=== PATIENT | male | born 1985 | race Caucasian/White ===

== ENCOUNTER 2019-04-05 16:54 | Emergency (ER) | payer OTHER ==
[2019-04-05] MEDS ORDERED: CLEOCIN 600 MG/50 mL 600 MG/50 ML BAG IV ONE (17:35)
--- NOTE | 2019-04-05 17:39 | Emergency Department Report ---
- General Chief Complaint: Abdominal Pain Stated Complaint: HERNIA PAIN Time Seen by Provider: 04/05/19 17:18 Source: patient Mode of arrival: Ambulatory Limitations: No Limitations - History of Present Illness Initial Comments: 33-year-old male complains of pain and swelling to left upper thigh/groin region for the past 3 days. Symptoms have gradually worsened. Positive redness, tenderness to palpation, and pain rated 9/10 in intensity. Patient had subjective fevers. Contrary to triage patient does not have a history of hernia but he assumed that the swelling pain was due to a hernia. His complains of increased urinary frequency and denies previous history of diabetes. Patient denies nausea or vomiting. Last bowel movement 3 days ago. Patient has received a tetanus within the last 10 years - Related Data Previous Rx's Medication Instructions Recorded Last Taken Type Ibuprofen [Motrin] 600 mg PO Q8H PRN #30 tablet 04/05/19 Unknown Rx Sulfamethoxazole/Trimethoprim 1 each PO BID #20 tablet 04/05/19 Unknown Rx [Bactrim DS TAB] traMADol [Ultram 50 MG tab] 50 mg PO Q6HR PRN #20 tablet 04/05/19 Unknown Rx Allergies Allergy/AdvReac Type Severity Reaction Status Date / Time No Known Allergies Allergy Verified 04/05/19 18:18 ED Review of Systems ROS: Stated complaint: HERNIA PAIN Other details as noted in HPI Comment: All other systems reviewed and negative ED Past Medical Hx - Past Medical History Previous Medical History?: No - Social History Smoking Status: Current Every Day Smoker Substance Use Type: None - Medications Home Medications: Home Medications Medication Instructions Recorded Confirmed Last Taken Type Ibuprofen [Motrin] 600 mg PO Q8H PRN #30 tablet 04/05/19 Unknown Rx Sulfamethoxazole/Trimethoprim 1 each PO BID #20 tablet 04/05/19 Unknown Rx [Bactrim DS TAB] traMADol [Ultram 50 MG tab] 50 mg PO Q6HR PRN #20 tablet 04/05/19 Unknown Rx ED Physical Exam - General Limitations: No Limitations - Other Other exam information: General: No limitations, patient is alert in no acute distress Head exam: Atraumatic, normocephalic Eyes exam: Normal appearance ENT: Moist mucous membrane Neck exam: Normal inspection, full range of motion, no meningismus nontender Respiratory exam: Clear to auscultation bilateral, no wheezes, rales, crackles Cardiovascular: Normal rate and rhythm Abdomen: Soft, nondistended, and nontender, with normal bowel sounds, no rebound, or guarding Extremity: Full range of motion normal inspection no deformity Back: Normal Inspection, full range of motion, no tenderness Neurologic: Alert, oriented x3, cranial nerves intact, no motor or sensory def icit Psychiatric: normal affect, normal mood Skin:left upper thigh 6x 6 area of induration with central fluctuance and 11 x 11 cm area of redness and warmth ED Course Vital Signs 04/05/19 04/05/19 04/05/19 17:01 18:30 18:35 Temperature 98.8 F Pulse Rate 95 H 79 Respiratory 18 18 18 Rate Blood Pressure 123/73 Blood Pressure 121/68 [Right] O2 Sat by Pulse 98 100 100 Oximetry 04/05/19 19:40 Temperature 98.8 F Pulse Rate 82 Respiratory 18 Rate Blood Pressure Blood Pressure 118/74 [Right] O2 Sat by Pulse 97 Oximetry - I & D Left Thigh Type of Procedure: Simple Site: left upper anterior thigh Blade Size: 11 I & D Procedure: betadine prep, sterile drapes applied, sterile dressing applied, gauze wick placed Progress: aprox 10ml of purlent drainage obtained site irrigated packed cultures sent pt vy procedure well. ED Medical Decision Making - Lab Data Result diagrams: 04/05/19 17:48 04/05/19 Unknown Lab Results 04/05/19 04/05/19 04/05/19 Range/Units 17:41 17:48 17:48 WBC 13.5 H (4.5-11.0) K/mm3 RBC 4.06 (3.65-5.03) M/mm3 Hgb 12.5 (11.8-15.2) gm/dl Hct 36.6 (35.5-45.6) % MCV 90 (84-94) fl MCH 31 (28-32) pg MCHC 34 (32-34) % RDW 13.7 (13.2-15.2) % Plt Count 360 (140-440) K/mm3 Lymph % (Auto) 10.7 L (13.4-35.0) % [place] % (Auto) 8.1 H (0.0-7.3) % Eos % (Auto) 1.2 (0.0-4.3) % Baso % (Auto) 0.4 (0.0-1.8) % Lymph # 1.4 (1.2-5.4) K/mm3 [place] # 1.1 H (0.0-0.8) K/mm3 Eos # 0.2 (0.0-0.4) K/mm3 Baso # 0.1 (0.0-0.1) K/mm3 Seg Neutrophils % 79.6 H (40.0-70.0) % Seg Neutrophils # 10.7 H (1.8-7.7) K/mm3 Sodium TNR Potassium TNR Chloride TNR Carbon Dioxide TNR Anion Gap TNR BUN TNR Creatinine TNR Estimated GFR TNR BUN/Creatinine Ratio TNR Glucose TNR POC Glucose 113 H (70-105) Calcium TNR 04/05/19 Range/Units Unknown WBC (4.5-11.0) K/mm3 RBC (3.65-5.03) M/mm3 Hgb (11.8-15.2) gm/dl Hct (35.5-45.6) % MCV (84-94) fl MCH (28-32) pg MCHC (32-34) % RDW (13.2-15.2) % Plt Count (140-440) K/mm3 Lymph % (Auto) (13.4-35.0) % [place] % (Auto) (0.0-7.3) % Eos % (Auto) (0.0-4.3) % Baso % (Auto) (0.0-1.8) % Lymph # (1.2-5.4) K/mm3 [place] # (0.0-0.8) K/mm3 Eos # (0.0-0.4) K/mm3 Baso # (0.0-0.1) K/mm3 Seg Neutrophils % (40.0-70.0) % Seg Neutrophils # (1.8-7.7) K/mm3 Sodium 136 L Potassium 3.8 Chloride 98.3 Carbon Dioxide 29 Anion Gap 13 BUN 8 L Creatinine 0.7 L Estimated GFR > 60 BUN/Creatinine Ratio 11 Glucose 113 H POC Glucose (70-105) Calcium 8.1 L - Radiology Data Radiology results: report reviewed - Medical Decision Making Patient treated with Dilaudid and Ativan and Zofran prior to incision and drainage. Received IV clindamycin Tetanus up-to-date Wound culture sent DC with medicine follow-up for repeat exam in 2 days - Differential Diagnosis cellulits, abscess, lymphadenopathy, hernia Critical Care Time: No Critical care attestation.: If time is entered above; I have spent that time in minutes in the direct care of this critically ill patient, excluding procedure time. ED Disposition Clinical Impression: Thigh abscess, Cellulitis of left thigh Disposition: DC-01 TO HOME OR SELFCARE Is pt being admited?: No Does the pt Need Aspirin: No Condition: Stable Instructions: Abscess (ED), Cellulitis (ED) Additional Instructions: Please return here in 2 days for packing removal and wound reevaluation. Return sooner if symptoms worsen as indicated by her discharge instructions. It is very important to take the medication as prescribed until the antibiotics are complete. Por favor regrese aqu en 2 herman para el retiro del empaque y la reevaluacin de la herida. Regrese antes si los sntomas empeoran earl lo indican tres instrucciones de rufus. Es muy importante daniel el medicamento segn lo prescrito hasta que los antibiticos estn completos. Prescriptions: Sulfamethoxazole/Trimethoprim [Bactrim DS TAB] 1 each PO BID #20 tablet Ibuprofen [Motrin] 600 mg PO Q8H PRN #30 tablet PRN Reason: Pain traMADol [Ultram 50 MG tab] 50 mg PO Q6HR PRN #20 tablet PRN Reason: Pain Referrals: [facility] [Provider Group] - 3-5 Days
[2019-04-05] MEDS ORDERED: ZOFRAN IV ONE (17:41)
[2019-04-05] MEDS ORDERED: DILAUDID IV ONE (17:41)
[2019-04-05] MEDS ORDERED: XYLOCAINE 1% 20 mL INFILTRATI ONE (17:50)
[2019-04-05 18:03] LABS: Basophils # (Auto) 0.1 K/mm3 (0.0-0.1); Basophils % (Auto) 0.4 % (0.0-1.8); Eosinophils # (Auto) 0.2 K/mm3 (0.0-0.4); Eosinophils % (Auto) 1.2 % (0.0-4.3); Hematocrit 36.6 % (35.5-45.6); Hemoglobin 12.5 gm/dl (11.8-15.2); Lymphocytes # (Auto) 1.4 K/mm3 (1.2-5.4); Lymphocytes % (Auto) 10.7 % (13.4-35.0); Mean Corpuscular HGB Conc 34 % (32-34); Mean Corpuscular Volume 90 fl (84-94); Monocytes # (Auto) 1.1 K/mm3 (0.0-0.8); Monocytes % (Auto) 8.1 % (0.0-7.3); Platelet Count 360 K/mm3 (140-440); Red Blood Count 4.06 M/mm3 (3.65-5.03); Red Cell Distribution Width 13.7 % (13.2-15.2)
[2019-04-05 18:37] LABS: BUN/Creatinine Ratio TNR; Blood Urea Nitrogen TNR mg/dL (9-20)
[2019-04-05 18:38] LABS: Calcium TNR mg/dL (8.4-10.2); Hemolysis Index TNR
[2019-04-05] MEDS ORDERED: ATIVAN IV ONE (18:42)
[2019-04-05] MEDS ORDERED: XYLOCAINE 1%/ EPI 1:100,000 INFILTRATI NR (19:00)
[2019-04-05 19:11] LABS: BUN/Creatinine Ratio 11; Blood Urea Nitrogen 8 mg/dL (9-20); Calcium 8.1 mg/dL (8.4-10.2); Hemolysis Index 3
[2019-04-05 21:55] VITALS: BP 112/72
== END 2019-04-05 21:56 | disposition home or self-care (01) ==
LOC: ED 16:54
DX: L02.416 Cutaneous abscess of left lower limb (principal); L03.116 Cellulitis of left lower limb; F17.200 Nicotine dependence, unspecified, uncomplicated
CPT/HCPCS: 10060; 36415; 80048; 82962; 85025; 87116; 96365; 96375; 99283; J1170; J2060; J2405

== ENCOUNTER 2019-04-07 10:21 | Emergency (ER) | payer OTHER ==
[2019-04-07 10:31] VITALS: BP 127/72
--- NOTE | 2019-04-07 10:51 | Emergency Department Report ---
Abscess Boil HPI - HPI Chief Complaint: Skin/Abscess/Foreign Body Stated Complaint: FOLLOW UP Time Seen by Provider: 04/07/19 10:50 Duration: 2 Days Location: Other Severity: Moderate History: Yes Pain, No Fever, No Purulent Drainage, No Numbness, No Foreign Body, No Previous History, No Insect Bite HPI: She is a 33-year-old who was just seen in the ER for an I&D of his left groin area. Patient did not lose antibiotics because he could not afford them. He returns to the ER today for packing removal. Patient has no fever. His vital signs are stable. Home Medications: Previous Rx's Medication Instructions Recorded Last Taken Type Ibuprofen [Motrin] 600 mg PO Q8H PRN #30 tablet 04/05/19 Unknown Rx Sulfamethoxazole/Trimethoprim 1 each PO BID #20 tablet 04/05/19 Unknown Rx [Bactrim DS TAB] traMADol [Ultram 50 MG tab] 50 mg PO Q6HR PRN #20 tablet 04/05/19 Unknown Rx Amoxicillin [Trimox CAP] 500 mg PO TID #30 capsule 04/07/19 Unknown Rx Allergies/Adverse Reactions: Allergies Allergy/AdvReac Type Severity Reaction Status Date / Time No Known Allergies Allergy Verified 04/05/19 18:18 ED Review of Systems ROS: Stated complaint: FOLLOW UP Other details as noted in HPI Comment: All other systems reviewed and negative ED Past Medical Hx - Past Medical History Previous Medical History?: Yes Additional medical history: hernia - Surgical History Past Surgical History?: Yes Additional Surgical History: Right arm - Social History Smoking Status: Current Every Day Smoker Substance Use Type: None - Medications Home Medications: Home Medications Medication Instructions Recorded Confirmed Last Taken Type Ibuprofen [Motrin] 600 mg PO Q8H PRN #30 tablet 04/05/19 Unknown Rx Sulfamethoxazole/Trimethoprim 1 each PO BID #20 tablet 04/05/19 Unknown Rx [Bactrim DS TAB] traMADol [Ultram 50 MG tab] 50 mg PO Q6HR PRN #20 tablet 04/05/19 Unknown Rx Amoxicillin [Trimox CAP] 500 mg PO TID #30 capsule 04/07/19 Unknown Rx ED Abscess Boil Physical Exam - Exam General: Vital signs noted. No distress. Alert and acting appropriately. Front/Back of Body, Lg (Color): 1 - AREA OF PREVIOUS I/D Exam: Yes Tenderness, Yes Surrounding Cellulites/Erythema, Yes Normal Neurologic Exam, Yes Normal Circulation, No Fluctuance, No Lymphangitis, No Crepitation, No Heart Murmur Exam: The area of cellulitis is approximately 12 cm x 12 cm. Packing was removed without difficulty. The surrounding area is red and firm. A long discussion with the patient about his need to get antibiotics. He cannot afford the Bactrim. He states he has no insurance. He said that amoxicillin. Given that it is free. I EDUCATED him the importance of this and he verbalizes understanding. I & D Note - I & D Note I & D Note: PACKING REMOVED WITHOUT DIFFICULTY ED Course Vital Signs 04/07/19 10:29 Temperature 97.6 F Pulse Rate 95 H Respiratory 16 Rate Blood Pressure 127/72 O2 Sat by Pulse 98 Oximetry Critical care attestation.: If time is entered above; I have spent that time in minutes in the direct care of this critically ill patient, excluding procedure time. ED Medical Decision Making - Lab Data Result diagrams: 04/07/19 11:03 - Medical Decision Making PACKING REMOVED PT DID NOT GET HIS MEDS FILLED THE L GROIN AREA IS NOW CELLULITIC AND PAINFUL NO FEVER WBC RECHECKED AND NORMAL GIVEN MEDS IN ER AND DC HOME WITH AMOX WHICH HE STATES HE WILL GET FILLED BECAUSE IT IS FREE. DC HOME WITH OUTPATIENT FOLLOW UP Labs 04/07/19 11:03 WBC 7.0 RBC 4.36 Hgb 13.2 Hct 39.3 MCV 90 MCH 30 MCHC 34 RDW 14.0 Plt Count 387 Vital Signs 04/07/19 10:29 Temperature 97.6 F Pulse Rate 95 H Respiratory 16 Rate Blood Pressure 127/72 O2 Sat by Pulse 98 Oximetry ED Disposition Clinical Impression: Cellulitis of left thigh Disposition: DC-01 TO HOME OR SELFCARE Is pt being admited?: No Does the pt Need Aspirin: No Condition: Stable Instructions: Cellulitis (ED) Additional Instructions: FOLLOW UP WITH MD BELOW TAKE YOUR MEDICATIONS THE ANTIBIOTIC IS FREE AT [facility] MOTRIN OR TYLENOL FOR PAIN Prescriptions: Amoxicillin [Trimox CAP] 500 mg PO TID #30 capsule Referrals: [facility], [place] [Primary Care Provider] - 3-5 Days Time of Disposition: 11:28 Print Language: IRANIAN
[2019-04-07] MEDS ORDERED: NACL 0.9% 1000 ML 1,000 ML IV ONE (10:52)
[2019-04-07] MEDS ORDERED: NORCO 7.5/325 PO ONE (10:54)
[2019-04-07 11:23] LABS: Hematocrit 39.3 % (35.5-45.6); Hemoglobin 13.2 gm/dl (11.8-15.2); Mean Corpuscular HGB Conc 34 % (32-34); Mean Corpuscular Volume 90 fl (84-94); Platelet Count 387 K/mm3 (140-440); Red Blood Count 4.36 M/mm3 (3.65-5.03)
[2019-04-07] MEDS ORDERED: CLEOCIN 300 MG/50 mL 300 MG/50 ML BAG IV ONE (11:30)
[2019-04-07 11:32] LABS: BUN/Creatinine Ratio 20; Blood Urea Nitrogen 14 mg/dL (9-20); Calcium 8.1 mg/dL (8.4-10.2); Hemolysis Index 12
== END 2019-04-07 12:28 | disposition home or self-care (01) ==
LOC: ED 10:21
DX: L03.116 Cellulitis of left lower limb (principal)
CPT/HCPCS: 36415; 80048; 85027; 96365; 99283; J7030

== ENCOUNTER 2022-02-25 19:35 | Emergency (ER) | payer SELFPAY ==
[2022-02-25 22:41] VITALS: BP 142/96
== END 2022-02-26 04:00 | disposition left against medical advice (07) ==
LOC: ED 19:35
DX: R51.9 Headache, unspecified (principal); Z53.21 Procedure and treatment not carried out due to patient leaving prior to being seen by health care provider

== ENCOUNTER 2022-03-31 03:41 | Emergency (ER) | payer SELFPAY ==
[2022-03-31 04:04] VITALS: BP 132/80
== END 2022-04-02 06:39 | disposition left against medical advice (07) ==
LOC: ED 03:41
DX: R51.9 Headache, unspecified (principal); Z53.21 Procedure and treatment not carried out due to patient leaving prior to being seen by health care provider

== ENCOUNTER 2022-04-03 19:39 | Emergency (ER) | payer SELFPAY ==
--- NOTE | 2022-04-04 06:29 | Emergency Department Report ---
ED Rash [facility] Chief Complaint: Headache Stated Complaint: HEAD PAIN Time Seen by Provider: 04/04/22 06:01 Duration: 30 days Location: Head, Upper Extremities Suspected Cause: Other (My) Rash Symptoms: Yes Itching Severity: mild Other History: This 36-year-old male recently incarcerated and upon being released about a month ago reports having a rash to his head and arm region which he thinks was secondary to a mild, like to have the migraine to help to alleviate his symptoms. Reports no fever, chills, sweats. No wound discharge no bleeding. He denies any injury to the area of the rash. ED Review of Systems ROS: Stated complaint: HEAD PAIN Other details as noted in HPI ED Past Medical Hx - Past Medical History Additional medical history: hernia - Surgical History Additional Surgical History: LEFT ARM - PINS AND EVER PLACEMENT D/T BREAK - Social History Smoking Status: Never Smoker Substance Use Type: None - Medications Home Medications: Home Medications Medication Instructions Recorded Confirmed Last Taken Type Ibuprofen [Motrin] 600 mg PO Q8H PRN #30 tablet 04/05/19 Unknown Rx Sulfamethoxazole/Trimethoprim 1 each PO BID #20 tablet 04/05/19 Unknown Rx [Bactrim DS TAB] traMADoL [Ultram 50 MG tab] 50 mg PO Q6HR PRN #20 tablet 04/05/19 Unknown Rx Amoxicillin [Trimox CAP] 500 mg PO TID #30 capsule 04/07/19 Unknown Rx Permethrin 5% [Acticin 5% CREAM] 1 applicatio TP ONCE #1 tube 04/04/22 Unknown Rx Rash Exam - Exam General: Vital signs noted. No distress. Alert and acting appropriately. ED Course Vital Signs 04/03/22 20:12 Temperature 98.4 F Pulse Rate 80 Respiratory 18 Rate Blood Pressure 128/69 O2 Sat by Pulse 99 Oximetry Critical care attestation.: If time is entered above; I have spent that time in minutes in the direct care of this critically ill patient, excluding procedure time. ED Disposition Clinical Impression: Rash Disposition: 01 HOME / SELF CARE / HOMELESS Is pt being admited?: No Does the pt Need Aspirin: No Condition: Stable Instructions: Rash, Adult Prescriptions: Permethrin 5% [Acticin 5% CREAM] 1 applicatio TP ONCE #1 tube Referrals: [facility], [LAB/CONTRACT] - 3-5 Days
[2022-04-04 07:27] VITALS: BP 137/76
== END 2022-04-04 07:10 | disposition home or self-care (01) ==
LOC: ED 19:39
DX: R21 Rash and other nonspecific skin eruption (principal)
CPT/HCPCS: 99282